=== PATIENT | female | born 2000 | race Caucasian/White ===

== ENCOUNTER 2020-09-23 12:59 | Outpatient (CLI) | payer OTHER ==
[~2020-09-23 12:59] MED LIST: COLACE 100MG C100 MG PO; FEOSOL325 MG PO; IBUPROFEN600 MG PO; LORTAB 5-325 M1 EACH PO; PRENATAL VITAM1 EAC8 PO
== END 2020-09-23 15:37 | disposition home or self-care (01) ==
LOC: GENOP 12:59
DX: O36.8130 Decreased fetal movements, third trimester, not applicable or unspecified (principal); O99.891 Other specified diseases and conditions complicating pregnancy; M54.9 Dorsalgia, unspecified; Z3A.38 38 weeks gestation of pregnancy
CPT/HCPCS: G0463

== ENCOUNTER → 2020-09-24 | Outpatient (CLI) | payer OTHER ==
[~2020-09-24] MED LIST changes: +BACTRIM DS TAB1 EACH PO; +DOCUSATE SODIU100 MG PO; +FERROUS SULFAT325 M2 PO; +GUMMIES GIRLS'1 EACH PO; +HYDROCODON-ACE1 EAC4 PO; +VISTARIL25 MG PO
[2020-09-24 13:47] LABS: HEMOGLOBIN 9.2 gm/dl (12.3-15.3); RED BLOOD COUNT 3.09 M/UL (4.00-5.10); WHITE BLOOD COUNT 8.8 K/UL (4.5-11.0)
[2020-09-24 15:18] LABS: BUN/CREATININE RATIO 8 (0-10)
== END ==
LOC: GENOP 11:47 → OB 16:10
PROVIDERS: Obstetrics & Gynecology
DX: O99.891 Other specified diseases and conditions complicating pregnancy (principal); R03.0 Elevated blood-pressure reading, without diagnosis of hypertension; Z3A.38 38 weeks gestation of pregnancy
CPT/HCPCS: 36415; 59025; 80053; 81001; 82570; 84132; 84156; 84550; 85025

== ENCOUNTER → 2020-09-29 | Outpatient (CLI) | payer OTHER ==
[2020-09-29 13:19] LABS: HEMOGLOBIN 9.5 gm/dl (12.3-15.3); RED BLOOD COUNT 3.21 M/UL (4.00-5.10); WHITE BLOOD COUNT 10.5 K/UL (4.5-11.0)
== END ==
LOC: GENOP 11:56
PROVIDERS: Obstetrics & Gynecology
DX: Z01.812 Encounter for preprocedural laboratory examination (principal)
CPT/HCPCS: 36415; 81001; 85025

== ENCOUNTER 2020-09-30 05:26 | Inpatient (IN) | payer OTHER ==
[~2020-09-30] VITALS: Ht 165.1 cm; Wt 70.8 kg
[~2020-09-30 05:26] MED LIST changes: -BACTRIM DS TAB1 EACH PO; -DOCUSATE SODIU100 MG PO; -FERROUS SULFAT325 M2 PO; -GUMMIES GIRLS'1 EACH PO; -HYDROCODON-ACE1 EAC4 PO; -VISTARIL25 MG PO
[2020-09-30] MEDS ORDERED: VISTARIL25 MG PO (06:13)
[2020-09-30] MEDS ORDERED: GUMMIES GIRLS'1 EACH PO (06:14)
[2020-09-30] MEDS ORDERED: HYDROCODON-ACE1 EAC4 PO (11:06)
[2020-09-30] MEDS ORDERED: IBUPROFEN600 MG PO (11:06)
[2020-09-30] MEDS ORDERED: DOCUSATE SODIU100 MG PO (11:06)
[2020-10-01 06:08] LABS: HEMOGLOBIN 8.4 gm/dl (12.3-15.3)
[2020-10-01] MEDS ORDERED: FERROUS SULFAT325 M2 PO (14:48)
[2020-10-01] MEDS ORDERED: BACTRIM DS TAB1 EACH PO (14:58)
== END 2020-10-01 15:52 | disposition home or self-care (01) | DRG 787 ==
LOC: OB 05:26
PROVIDERS: ADMIT Obstetrics & Gynecology
PROC: 10D00Z1 Extraction of Products of Conception, Low, Open Approach (ICD-10-PCS; principal; 2020-09-30 07:30)
PROC: 3E0234Z Introduction of Serum, Toxoid and Vaccine into Muscle, Percutaneous Approach (ICD-10-PCS; 2020-10-01)
DX: O34.211 Maternal care for low transverse scar from previous cesarean delivery (principal); O23.43 Unspecified infection of urinary tract in pregnancy, third trimester; N85.8 Other specified noninflammatory disorders of uterus; Z3A.39 39 weeks gestation of pregnancy; Z37.0 Single live birth; O69.81X0 Labor and delivery complicated by cord around neck, without compression, not applicable or unspecified; Z23 Encounter for immunization; O99.344 Other mental disorders complicating childbirth; F41.9 Anxiety disorder, unspecified; F32.9 Major depressive disorder, single episode, unspecified
CPT/HCPCS: 36415; 82800; 85014; 85018; 86850; 86900; 86901; 90715; C9113; J0690; J1170; J1200; J2274; J2405; J2590; J3010; J7120